=== PATIENT | female | born 1980 | race Two or more races ===

== ENCOUNTER 2017-12-15 15:03 | Emergency (ER) | payer MEDICAID, OTHER ==
[~2017-12-15] VITALS: Ht 162.6 cm; Wt 59.0 kg
[~2017-12-15 15:03] MED LIST: ALBUTEROL SULF8.5 GM INH; AUGMENTIN 875-1 EAC1 ORAL; HYDROCODON-ACE1 EA15 ORAL; NEXAFED30 MG ORAL
[2017-12-15 16:32] VITALS: BP 133/77
[2017-12-15 16:48] LABS: BASOPHILS % (AUTO) 0.8 % (0.0-2.0); EOSINOPHILS % (AUTO) 2.8 % (0.0-3.0); HEMATOCRIT 41.4 % (37.0-47.0); HEMOGLOBIN 14.4 G/DL (12.0-16.0); LYMPHOCYTES % (AUTO) 18.1 % (20.0-45.0); MEAN CORPUSCULAR VOLUME 90 FL (80-99); MONOCYTES % (AUTO) 4.2 % (1.0-10.0); NEUTROPHILS % (AUTO) 74.1 % (45.0-75.0); PLATELET COUNT 247 K/UL (150-450); RED BLOOD COUNT 4.58 M/UL (4.20-5.40); RED CELL DISTRIBUTION WIDTH 11.1 % (11.6-14.8); WHITE BLOOD COUNT 12.6 K/UL (4.8-10.8)
[2017-12-15 17:05] LABS: ANION GAP 12 mmol/L (5-15); BLOOD UREA NITROGEN 9 mg/dL (7-18); CALCIUM 8.9 MG/DL (8.5-10.1); CARBON DIOXIDE 23 MMOL/L (21-32); CHLORIDE 103 MMOL/L (98-107); CREATININE 0.4 MG/DL (0.55-1.30); POTASSIUM 4.2 MMOL/L (3.5-5.1); SODIUM 138 MMOL/L (136-145)
[2017-12-15 17:19] LABS: ALANINE AMINOTRANSFERASE 20 U/L (12-78); ALBUMIN/GLOBULIN RATIO 1.1 (1.0-2.7); ALKALINE PHOSPHATASE 35 U/L (46-116); ASPARTATE AMINO TRANSFERASE 15 U/L (15-37); BILIRUBIN,TOTAL 0.2 MG/DL (0.2-1.0); CKMB < 0.5 NG/ML (0.0-3.6); CREATINE KINASE 51 U/L (26-308)
[2017-12-15 17:25] VITALS: BP 122/69
--- NOTE | 2017-12-15 18:17 | Emergency Room Report ---
History of Present Illness General Chief Complaint: Chest Pain Source: Patient Present Illness HPI This patient states she was shopping at a grocery store and suddenly developed sharp chest pain. She states this there was no trauma. She denies recent illness. She states the pain only occurs with deep inspiration. She denies cough or congestion. She denies fever or chills. She denies long distance travel. She denies leg swelling. She does take oral contraceptive pills. She has no other complaints. Allergies: Coded Allergies: No Known Allergies (Unverified , 03/15/15) Patient History Past Medical History: asthma Social History: Denies: smoking, alcohol use, drug use Last Menstrual Period: 11/2017 Reviewed Nursing Documentation: PMH: Agreed, PSxH: Agreed Nursing Documentation-PMH Past Medical History: No History, Except For Hx Asthma: Yes Review of Systems All Other Systems: negative except mentioned in HPI Physical Exam Vital Signs Date Time Temp Pulse Resp B/P (MAP) Pulse Ox O2 Delivery O2 Flow Rate FiO2 12/15/17 15:25 98.1 77 16 124/84 97 Room Air Sp02 EP Interpretation: reviewed, normal General Appearance: no apparent distress, alert, GCS 15, non-toxic Head: normocephalic, atraumatic Eyes: bilateral eye normal inspection, bilateral eye PERRL ENT: hearing grossly normal, normal pharynx, no angioedema, normal voice Neck: full range of motion, supple/symm/no masses Respiratory: chest non-tender, lungs clear, normal breath sounds, speaking full sentences Cardiovascular #1: regular rate, rhythm, no edema Gastrointestinal: normal bowel sounds, non tender, soft, non-distended, no guarding, no rebound Rectal: deferred Musculoskeletal: back normal, gait/station normal, normal range of motion, non- tender Neurologic: alert, oriented x3, responsive, motor strength/tone normal, sensory intact, speech normal Psychiatric: judgement/insight normal, memory normal, mood/affect normal, no suicidal/homicidal ideation Skin: normal color, no rash, warm/dry, well hydrated Medical Decision Making Diagnostic Impression: Primary Impression: Chest pain ER Course This patient has pleuritic chest pain. The patient's workup is very reassuring with negative cardiac enzymes, normal EKG, and normal chest x-ray. The patient is low risk and her symptoms are atypical for acute coronary syndrome. I have very low suspicion for PE, aortic dissection or pneumothorax based on history/ physical, laboratory and radiologic workup. Also reassuring is a negative d- dimer. The patient was given close return precautions and followup instructions. Laboratory Tests Test 12/15/17 16:10 White Blood Count 12.6 K/UL (4.8-10.8) H Red Blood Count 4.58 M/UL (4.20-5.40) Hemoglobin 14.4 G/DL (12.0-16.0) Hematocrit 41.4 % (37.0-47.0) Mean Corpuscular Volume 90 FL (80-99) Mean Corpuscular Hemoglobin 31.4 PG (27.0-31.0) H Mean Corpuscular Hemoglobin Concent 34.7 G/DL (32.0-36.0) Red Cell Distribution Width 11.1 % (11.6-14.8) L Platelet Count 247 K/UL (150-450) Mean Platelet Volume 8.4 FL (6.5-10.1) Neutrophils (%) (Auto) 74.1 % (45.0-75.0) Lymphocytes (%) (Auto) 18.1 % (20.0-45.0) L Monocytes (%) (Auto) 4.2 % (1.0-10.0) Eosinophils (%) (Auto) 2.8 % (0.0-3.0) Basophils (%) (Auto) 0.8 % (0.0-2.0) D-Dimer 0.20 mg/L FEU (0.00-0.49) Sodium Level 138 MMOL/L (136-145) Potassium Level 4.2 MMOL/L (3.5-5.1) Chloride Level 103 MMOL/L (98-107) Carbon Dioxide Level 23 MMOL/L (21-32) Anion Gap 12 mmol/L (5-15) Blood Urea Nitrogen 9 mg/dL (7-18) Creatinine 0.4 MG/DL (0.55-1.30) L Estimate Glomerular Filtration Rate > 60 mL/min (>60) Glucose Level 82 MG/DL (74-106) Calcium Level 8.9 MG/DL (8.5-10.1) Total Bilirubin 0.2 MG/DL (0.2-1.0) Aspartate Amino Transferase (AST) 15 U/L (15-37) Alanine Aminotransferase (ALT) 20 U/L (12-78) Alkaline Phosphatase 35 U/L (46-116) L Total Creatine Kinase 51 U/L (26-308) Creatine Kinase MB < 0.5 NG/ML (0.0-3.6) Creatine Kinase MB Relative Index 0.9 Troponin I 0.000 ng/mL (0.000-0.056) Total Protein 7.5 G/DL (6.4-8.2) Albumin 4.0 G/DL (3.4-5.0) Globulin 3.5 g/dL Albumin/Globulin Ratio 1.1 (1.0-2.7) EKG Diagnostic Results Rate: normal Rhythm: NSR ST Segments: no acute changes Rhythm Strip Diag. Results EP Interpretation: yes Rate: 90's Rhythm: NSR, no PVC's, no ectopy Chest X-Ray Diagnostic Results Chest X-Ray Diagnostic Results : Chest X-Ray Ordered: Yes # of Views/Limited/Complete: 1 View Indication: Chest Pain EP Interpretation: Yes Interpretation: no consolidation, no effusion, no pneumothorax, no acute cardiopulmonary disease Impression: No acute disease Electronically Signed by: Eduardo Last Vital Signs Date Time Temp Pulse Resp B/P (MAP) Pulse Ox O2 Delivery O2 Flow Rate FiO2 12/15/17 17:25 98.0 96 20 122/69 100 Room Air Status: improved Disposition: HOME, SELF-CARE Condition: Improved Referrals: [facility],REFERRING (PCP) Patient Instructions: Nonspecific Chest Pain VIVIAN LUJAN D.O. Dec 15, 2017 18:17
[2017-12-15 18:33] VITALS: BP 136/68
[2017-12-15 18:35] VITALS: BP 136/68
[2017-12-15] MEDS ORDERED: FLONASE SENSIM9.9 ML NS (18:39)
--- NOTE | 2017-12-15 19:18 | Diagnostic Imaging Report ---
Indication: Chest pain Technique: XRAY Chest 1v Comparison: None Findings: Heart size and mediastinal contours are within normal limits given technique. There is no focal consolidation, pneumothorax or pleural effusion. Osseous structures demonstrate no acute abnormality. Impression: No radiographic evidence of acute cardiopulmonary disease.
== END 2017-12-15 18:35 | disposition home or self-care (01) ==
LOC: EMR 16:15
DX: R07.89 Other chest pain (principal); J45.909 Unspecified asthma, uncomplicated
CPT/HCPCS: 36415; 71045; 80053; 82550; 82553; 84484; 85025; 85379; 93005; 99284

== ENCOUNTER 2019-01-29 19:34 | Emergency (ER) | payer MEDICAID ==
[~2019-01-29] VITALS: Ht 162.6 cm; Wt 68.0 kg
[~2019-01-29 19:34] MED LIST changes: +FLONASE SENSIM9.9 ML NS
[2019-01-29 20:08] VITALS: BP 124/79
[2019-01-29] MEDS ORDERED: Fluorescein Strips RIGHT EYE ONE (20:30)
[2019-01-29] MEDS ORDERED: Tetracaine 0.5% Opth 4ml Soln LEFT EYE ONE (20:30)
--- NOTE | 2019-01-29 20:41 | Emergency Room Report ---
History of Present Illness General Chief Complaint: Sore Throat Source: Patient Present Illness HPI 38-year-old female patient presents ER with multiple complaints. Patient complaining of sore throat. Patient's daughter currently in the ER with similar complaints. Reports symptoms since yesterday. Denies fever. Reports is taking Tylenol for pain symptoms. Denies other aggravating or relieving factors. Denies vomiting, diarrhea, abdominal pain. Also complaining of right eye redness and pain. Reports that it feels like "something was in her eye". Denies pain with eye movement. Reports that she wears contacts, states that he used eyedrops yesterday when the eye irritation began. States that she removed contact from her eye. Denies pruritus. Denies eye drainage. Denies loss of vision. Denies other aggravating or relieving factors. States does not know tetanus vaccination status. Allergies: Coded Allergies: No Known Allergies (Unverified , 03/15/15) Patient History Past Medical History: see triage record Last Menstrual Period: 01/01/19 Now: No : 7 Para: 7 Reviewed Nursing Documentation: PMH: Agreed; PSxH: Agreed Nursing Documentation-PMH Past Medical History: No History, Except For Hx Asthma: Yes Review of Systems All Other Systems: negative except mentioned in HPI Physical Exam Vital Signs Date Time Temp Pulse Resp B/P (MAP) Pulse Ox O2 Delivery O2 Flow Rate FiO2 01/29/19 19:38 98.4 95 18 128/76 97 Room Air Sp02 EP Interpretation: reviewed, normal General Appearance: well appearing, no apparent distress, alert, GCS 15, non- toxic Head: normocephalic, atraumatic Eyes: right eye Scleral Injection - Mild injection, right eye other - No fluorescein uptake, no rust ring, no foreign body, negative Rickie sign, no dendritic lesions; bilateral eye normal inspection, bilateral eye PERRL, bilateral eye EOMI ENT: hearing grossly normal, normal pharynx, no angioedema, normal voice, TMs + canals normal, uvula midline, moist mucus membranes, tonsillar swelling, pharyngeal erythema, tonsillar exudate - Right-sided exudate, few Neck: full range of motion, no meningismus, no bony tend Respiratory: lungs clear, normal breath sounds, no rhonchi, no respiratory distress, no accessory muscle use, no wheezing, speaking full sentences Cardiovascular #1: regular rate, rhythm, no edema Gastrointestinal: non tender, soft, no mass, non-distended, no guarding, no rebound Musculoskeletal: back normal, digits/nails normal, gait/station normal, normal range of motion, non-tender Neurologic: alert, oriented x3, responsive, motor strength/tone normal, sensory intact Psychiatric: mood/affect normal Skin: no rash Medical Decision Making PA Attestation Dr. Hernandez is my supervising Physician whom patient management has been discussed with. Diagnostic Impression: Primary Impression: Tonsillitis Additional Impression: Sensation of foreign body in eye ER Course Pt presents to ED c/o sore throat and right eye redness and pain. DDX considered but are not limited to influenza, viral URI, strep throat, pharyngitis, FB in eye, corneal abrasion, corneal ulcer, blepharitis, subconjunctival hemorrhage, glaucoma. Patient has no signs of surrounding cellulitis, no pain with eye movement, does not require imaging at this time. No reduction in VA, no cilliary flush, no photophobia, no FB sensation, no corneal opacity, low suspicion for keratitis, iritis. No VALIENTE, no vomiting, no fixed pupil, no reduction of VA, no ciliary flush, low suspicion for angle closure glaucoma. no uvula deviation, no neck stiffness, no stridor, no tripoding, low suspicion for peritonsillar abscess. VITAL SIGNS are WNL, patient is afebrile ER COURSE: tonsillar exudates, pharyngeal erythema, lymphadenopathy, no cough, likely pharyngitis. Will provide antibiotic treatment. Continue taking Tylenol for relief of symptoms. saltwater gargles. Drink plenty of fluids. Symptomatic treatment. Mild injection noted in right eye, no drainage, no itchiness, low suspicion for conjunctivitis. Fluorescein uptake negative, no abrasion, negative Rickie sign, no rust ring, no dendritic lesions, does not require antibiotics at this time. Follow-up with ophthalmology and wood craftsman. ER precautions given. DISCHARGE: Rx provided for amoxicillin -Rx given for Acetaminophen for fever/pain. Rx Opcon eye drops At this time pt is stable for d/c to home. Patient resting comfortably, in no acute distress, nontoxic appearing, talking without difficulty Patient to take medications as instructed. Will provide with patient care instructions and any necessary prescriptions. Care plan and follow-up instructions provided. Patient instructed to follow-up with primary care provider in 3 - 5 days. Patient questions asked and answered. ER precautions given. Patient instructed to return to ER immediately for any new or worsening of symptoms including but not limited to fever, SOB, difficulty swallowing. - Please note that this Emergency Department Report was dictated using [employer] ticket sales technology software, occasionally this can lead to erroneous entry secondary to interpretation by the dictation equipment. Last Vital Signs Date Time Temp Pulse Resp B/P (MAP) Pulse Ox O2 Delivery O2 Flow Rate FiO2 01/29/19 20:08 98.4 89 20 124/79 99 Room Air Status: improved Disposition: HOME, SELF-CARE Condition: Stable Scripts Ibuprofen* (MOTRIN*) 600 Mg Tablet 600 MG ORAL Q8H PRN for For Pain, #30 TAB 0 Refills Prov: Jose Locke 01/29/19 Naphazoline Hcl/Pheniramine (OPCON-A EYE DROPS) 15 Ml Drops 15 ML OP TID, #15 ML Prov: Jose Locke 01/29/19 Amoxicillin* (AMOXIL*) 500 Mg Capsule 500 MG ORAL EVERY 8 HOURS for 7 Days, #21 CAP Prov: Jose Locke 01/29/19 Patient Instructions: Eye Foreign Body, [id number], Tonsillitis Additional Instructions: Followup with primary care provider in 3 -5 days. Follow-up with ophthalmology in 24-48 hours and wood craftsman. Salt water gargles Take Tylenol for pain and fever symptoms Drink plenty of water. Take medications as directed. Patient questions asked and answered. ER precautions given, patient instructed to return to ER immediately for any new or worsening of symptoms including but not limited to intractable vomiting, difficulty breathing, inability to eat. Jose Locke Jan 29, 2019 20:41
[2019-01-29] MEDS ORDERED: OPCON-A EYE DRO15 ML OP (21:17)
[2019-01-29] MEDS ORDERED: IBUPROFEN600 MG ORAL (21:17)
[2019-01-29] MEDS ORDERED: AMOXICILLIN500 MG ORAL (21:17)
[2019-01-29 21:34] VITALS: BP 121/59
--- NOTE | 2019-01-29 21:35 | NUR ---
ER DISCHARGE NOTE: Patient is cleared to be discharged per ERMD, pt is aox4, on room air, with stable vital signs. pt was given dc and prescription instructions, pt was able to verbalize understanding, pt id band removed. pt is able to ambulate with steady gait. pt took all belongings.
== END 2019-01-29 21:34 | disposition home or self-care (01) ==
LOC: EMR 20:22
DX: J03.90 Acute tonsillitis, unspecified (principal); J45.909 Unspecified asthma, uncomplicated; H57.89 Other specified disorders of eye and adnexa
CPT/HCPCS: 99283